=== PATIENT | male | born 1955 | race Caucasian/White ===

== ENCOUNTER 2024-10-19 07:31 | Outpatient (CLI) | payer MEDICARE, SELFPAY ==
--- NOTE | ~2024-10-19 | PE_ITS ---
EXAMINATION: PET_PETPSMAST_PT DATE: 10/19/2024 10:19 INDICATION: Prostate cancer TECHNIQUE: 5.176 mCi of Illucix Ga-[id number]) was administered i.v. Low dose computed tangela graphy (CT) images were acquired from the base of the brain to the base of the brain to the proximal thighs for attenuation correction and anatomic localization. Positron emission tomography (PET) image s were acquired in the same distribution beginning 70 minutes after injection. Images including fused PET/CT images were reconstructed in axial, coronal, and sagittal planes. Automated exposure control technique was employed. The dose-length product was 1014.59mGy-cm. COMPARISON: None FINDINGS: Head/neck: Typical pattern of symmetric physiologic increased activity in the lacrimal, parotid and submandibula r glands as well as along the mucosa of the nasal and oral cavities, pharynx and hypopharynx. No path ologically enlarged cervical lymphadenopathy or suspicious foci of increased uptake in the visualized head or neck. Chest: Mild dependent atelectasis in both lungs. No suspicious pulmonary nodules, pneumonia, pulmonary edema or pleural effusion. Heart size is normal. No pericardial effusion. Thoracic aorta is normal in [place]. No pathologically enlarged or PSMA avid thoracic lymphadenopathy. Abdomen/pelvis/proximal thighs: Physiologic renal accumulation and excretion of activity in the kidneys, bladder and along portions o f ureters. Couple exophytic low-attenuation left renal cysts the larger measuring 1.5 cm. Prostatomeg isidro measuring 4.7 x 3.8 cm. There is a small focus of increased uptake at the posterolateral right si de of the prostate with maximal SUV of 16.3 consistent with primary prostate cancer. Normal degree an d slightly heterogenous pattern of increased uptake throughout the liver and spleen without radiologi c correlate or dominant PSMA avid lesion. The gallbladder, pancreas and bilateral adrenal glands are normal. Moderate uptake scattered throughout the bowels with typical duodenal and proximal jejunal pr edominance and without radiologic correlate, also likely physiologic. Normal appendix. No other abnor mal foci of increased uptake or pathologically enlarged lymphadenopathy in the abdomen, pelvis or pro ximal thighs. Musculoskeletal: There are bridging or nearly bridging osteophytes at multiple levels throughout the cervical, thoraci c and lumbar spine consistent with diffuse idiopathic skeletal hyperostosis (DISH). No suspicious ly tic, blastic or abnormally PSMA avid bone lesions. IMPRESSION: 1. Single focus of prominent increased uptake at the posterolateral right side of the enlarged prosta te consistent with reported primary prostate cancer. No evident metastatic disease. Reviewed, dictated and finalized at location A. IMPRESSION: 1. Single focus of prominent increased uptake at the posterolateral right side of the enlarged prostate consistent with reported primary prostate cancer. No e vident metastatic disease.
--- OUTSIDE RECORDS SUMMARY | 2024-10-19 07:34 | XMS_ITS | Clinical Summary ---
Author Organization [facility] [address] Address [address] [place] [address] Phone Care Team Providers Care Parts Data Writer Name Role Phone Kevin, Jude Chente MARSHALL Primary Care Provider [phone]- [phone] Allergies No known active allergies Medications triamcinolone (KENALOG) 0.1 % ointment Apply topically 2 (two) times a day as needed for rash 4 Active amLODIPine (NORVASC) 5 mg tabletIndicatio ns:Hypertension , essential TAKE 1 TABLET (5 MG TOTAL) BY MOUTH DAILY. 90 tablet 1 5 07/12/19 26 Active Active Problems Problem Noted Date Diagnosed Date Hyperglycemia 12/10/2023 Assessment & Plan (12/10/2023 8:54 AM CDT): Discussed ranges today goal hbaic is under 5.7 percent he is at 5.2 percent He has been working out and has dropped about 10 pounds Rising PSA level 12/10/2023 Assessment & Plan (12/10/2023 8:54 AM CDT): Level today us under 4 He is asymtpomatic We had notcied a trend in elevation hence it was repeated sooner Hypertension, essential 12/10/2023 Assessment & Plan (12/10/2023 8:55 AM CDT): Goal bp is 130/80 or under Continue norvasc 5 mg po qday Encounter for Medicare annual wellness exam 04/15 Overview (04/26/2019): Added automatically from request for surgery [id number] Assessment & Plan (06/14/2024 3:26 PM CDT): IMMUNIZATIONS WERE REVIEWED EYE EXAM AND DENTAL ENCOURAGED FALL PREVENTION AND PRECUATIONS REVIEWED ESSENTIAL HTN GOAL BP IS 130/80 OR UNDER SLOWLY RISING PSA REFER TO UROLOGY NO CONGTIVE DECLINE Right carpal tunnel syndrome 06/25/2017 Routine physical examination 03/31/2017 Acute prostatitis 12/02/2016 Immunizations Immunization Administration Dates Next Due Influenza, Unspecified 12/10/2023(Deferr ed: Patient Refused),01/04/2023(Deferred: Patient Refused) Tdap 04/18/2018 Surgical History Surgery Date Site/Laterality Comments COLONOSCOPY 03/15/2017 - 04/14/2017 COLONOSCOPY 07/02/2022 Medical History Medical History Date Comments Hypertension Social History Tobacco Use Types Packs/Day Years Used Date Smoking Tobacco: Never Smokeless Tobacco: Never Tobacco Cessation:Counseling Given: Not Answered PHQ-2 Answer Date Recorded PHQ-2 Total Score (If total score is 3 or more points, staff should administer the PHQ-9) 0 06/14/2024 Personal Safety Answer Date Recorded Have you ever been in or are you currently in a harmful physical or emotional relationship or is someone making you feel afraid or unsafe? 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 Gender Identity Not on file Sexual Orientation Not on file Obstetrics History Last Filed Vital Signs Vital Sign Reading Time Taken Comments Blood Pressure 152/80 06/14/2024 8:00 AM CDT Pulse 78 06/14/2024 8:00 AM CDT Temperature 36.7 C (98.1 F) 06/14/2024 8:00 AM CDT Respiratory Rate 16 06/14/2024 8:00 AM CDT Oxygen Saturation 95% 06/14/2024 8:00 AM CDT Inhaled Oxygen Concentration - - Weight 87.3 kg (192 lb 6.4 oz) 06/14/2024 8:00 A M CDT Height 180.3 cm (5' 11) 06/14/2024 8:00 AM CDT Body Mass Index 26.83 06/14/2024 8:00 AM CDT Plan of Treatment Health Maintenance Due Date Last Done Comments Hepatitis C Screening 1955 Hepatitis B Screening 08/07/1975 Pneumococcal vaccine 65+ (1 of 1 - PCV) 08/07/2007 Zoster Vaccine (1 of 2) 08/07/2007 Influenza Vaccine (#1) 2024 Depression Screening 06/14/2025 06/14/2024, 06/07/2023, 06/05/2022 Fall Risk Assessment 06/14/2025 06/14/2024, 06/07/19 Well Visit 65+ 06/14/2025 06/14/2024, 05/14, 06/05/2022, Additional history exists Prostate Cancer Screening-PSA 05/29/2026, 11/26/2023, 06/01/2023, Additional history exists DTaP/Tdap/Td Vaccine (2 - Td or Tdap) 04/18/2028 04/18/2018 Colon Cancer Screening-Colonoscopy 07/02/2032 07/02/2022 Colon Cancer Screening-CT Colonography Discontinued 07/02/2022 Colon Cancer Screening-DNA Stool Discontinued 07/03/19 Colon Cancer Screening-FIT Discontinued 07/02/2022 Colon Cancer Screening-Sigmoidoscopy Discontinued 07/02/2022 Procedures Procedure Name Priority Date/Time Associated Diagnosis Comments PSA DIAGNOSTIC Routine 05/29/2024 7:58 AM CDT Rising PSA level COLONOSCOPY 07/02/2022 9:25 AM CDT from Last 3 Months or Most Recently Relevant to Health Maintenance Results * PSA diagnostic (05/29/2024 7:58 AM CDT) PSA-Total 3.24 <=5.40 ng/mL Comment: Interpretive Data AGE SEX REFERENCE INTERVAL 0 minutes-150 years Female None 0 minutes-49 years Male None 50-59 years Male 0-3.90 60-69 years Male 0-5.40 70-79 years Male 0-6.20 80-150 years Male 0-6.20 The Spencer PSA Total assay procedure was used. Results from different manufacturers or methods may not be comparable. Serial testing should be performed using the same method. Current interpretive data last revised 21. Testing performed by: [facility], [address] [place] [address]., [id number] Blood 05/29/2024 7:58 AM CDT 05/29/2024 2:21 PM CDT us Jude Brown MD LAB BLOOD ORDERABLES Final Result [place] [id number] [facility] Department of Laboratories [place] [id number] * COLONOSCOPY (07/02/2022 9:25 AM CDT) Anatomical Region Laterality Modality Other Narrative Procedure Note Santos Mejia MD - 07/02/2022 9:25 AM CDT [facility] Patient Name: Rogelio Stone Procedure Date: 07/02/2022 9:25 AM Date of : 1955 Admit Type: Outpatient Age: 66 Gender: Male Attending MD: Santos Mejia M.D. Room: [facility] ENDOSCOPY ROOM 1 Note Status: Finalized Patient Profile: Refer to note in patient chart for documentation of history and physical. Procedure: Colonoscopy Indications: Screening for colorectal malignant neoplasm, Last colonoscopy: March 2017 Referring MD: Jude Brown M.D. Providers: Santos Mejia M.D. Impression: - Hemorrhoids found on perianal exam. - One 5 mm polyp in the ascending colon, removedwith a cold snare. Resected and retrieved. - Diverticulosis in the sigmoid colon and in the ascending colon. - The examination was otherwise normal. Recommendation: - Discharge patient to home. - Resume previous diet. - Continue present medications. - Await pathology results. - Repeat colonoscopy in 10 years [facility]. - Return to primary care physician as previously scheduled. Medicines: Propofol per Anesthesia Complications: No immediate complications. Estimated Blood Loss: Estimated blood loss: none. Procedure: Pre-Anesthesia Assessment: - This assessment was completed [Time ofAssessment] prior to the administration of sedation. The benefits, risks and alternatives of theprocedure and sedation were discussed and informed consentwas obtained. All questions were answered. Please referto the signed informed consent document in the medical record. The bowel preparation used was Miralax via split dose instruction. The bowel preparation usedwas bisacodyl tablets via split dose instruction. The scope was passed under direct vision. TheColonoscope [id number] was introduced through the anus and advanced to the the cecum, identified by appendiceal orifice and ileocecal valve. The colonoscopy was performed without difficulty. The patient tolerated the procedure well. The qualityof the bowel preparation was excellent. The ileocecal valve, appendiceal orifice, and rectum were photographed. Findings: Hemorrhoids were found on perianal exam. A 5 mm polyp was found in the ascending colon. The polyp was sessile. The polyp was removed with a cold snare. Resection and retrieval were complete. Verification of patient identification for the specimen was done by the physician and nurse using the patient's name and birthdate. Estimated blood loss was minimal. Multiple small-mouthed diverticula were found in the sigmoid colonand ascending colon. The exam was otherwise without abnormality. Electronically signed by Santos Mejia M.D. Santos Mejia M.D. 07/02/2022 10:36:43 AM Number of Addenda: 0 Note Initiated On: 07/02/2022 9:25 AM Procedure Code(s): --- Professional --- 97328, Colonoscopy, flexible; with removal of tumor(s), polyp(s), or other lesion(s) by snare technique --- Technical --- 26771, Colonoscopy, flexible; with removal of tumor(s), polyp(s), or other lesion(s) by snare technique Diagnosis Code(s): --- Professional --- K57.30, Diverticulosis of large intestine without perforation orabscess without bleeding D12.2, Benign neoplasm of ascending colon K64.9, Unspecified hemorrhoids Z12.11, Encounter for screening for malignant neoplasm of colon --- Technical --- K57.30, Diverticulosis of large intestine without perforation orabscess without bleeding D12.2, Benign neoplasm of ascending colon K64.9, Unspecified hemorrhoids Z12.11, Encounter for screening for malignant neoplasm of colon CPT copyright 2020 [employer]. All rights reserved. The codes documented in this report are preliminary and upon medical billing coder reviewmay be revised to meet current compliance requirements. Recognized by the [employer] for promoting quality in endoscopy Santos Mejia MD ENDOSCOPY PROCEDURES Final Re sult from Last 3 Months or Most Recently Relevant to Health Maintenance [facility] [id number] MEDICARE MEDICARE [facility] [id number] Advance Directives For more information, please contact: [phone] * Full Code (Latest Code Status on File) Date Activated Date Inactivated Comments 07/02/2022 9:07 AM 07/02/2022 3:41 PM * Full Code Date Activated Date Inactivated Comments 07/02/2022 9:07 AM 07/02/2022 9:07 AM Care Teams Parts Data Writer Relationship Specialty Start Date End Date Jude Brown MD [address] [place] [address] PCP - General 02/23/14
--- OUTSIDE RECORDS SUMMARY | 2024-10-19 07:34 | XMS_ITS | Clinical Summary ---
Author Organization [facility] Address [address] [place] [address] Phone Care Team Providers Care Hook Tender Name Role Phone Jude Brown MD Primary Care Provider [phone]- [phone] Allergies No known active allergies Medications No known medications Family History Medical History Relation Name Comments No Known Problems Father Stroke Mother Relation Name Status Comments Father Mother Alive Social History Tobacco Use Types Packs/Day Years Used Date Smoking Tobacco: Never Alcohol Use Standard Drinks/Week Comments Yes 0 (1 standard drink = 0.6 oz pur e alcohol) occassional Sex and Gender Information Value Date Recorded Sex Assigned at Not on file Legal Sex Male 10:35 PM CDT Gender Identity Not on file Sexual Orientation Not on file Occupation Industry Job Start Date Job End Date Retired Not on file Not on file Not on file Last Filed Vital Signs Vital Sign Reading Time Taken Comments Blood Pressure 122/84 06/12/2015 8:36 AM CDT Pulse 64 06/12/2015 8:36 AM CDT Temperature - - Respiratory Rate 20 06/12/2015 8:36 AM CDT Oxygen Saturation - - Inhaled Oxygen Concentration - - Weight 88 kg (194 lb) 06/12/2015 8:36 AM CDT Height 182.9 cm (6') 06/12/2015 8:36 AM CDT Body Mass Index 26.31 06/12/2015 8:36 AM CDT Plan of Treatment Health Maintenance Due Date Last Done Comments Hepatitis C Virus (HCV) Screening 1955 TdaP Immunization 1955 Cologuard 2002 Colonoscopy 2002 Colorectal Cancer Screening 2002 Immunochemical Fecal Occult Blood 2002 Pneumococcal Immunization (5 0+ years) (1 of 1 - PCV) 08/07/2007 Zoster Immunization (1 of 2) 08/07/2007 SARS-COV-2 Immunization (1 - season) 2023 Influenza Immunization (#1) 2024 Respiratory Syncytial Virus (RSV) Immunization (Adult) (1 - 1-dose 75+ series) 2032 Hepatitis B Immunization Aged Out No longer eligible based on patient's age to complete this topic Human Papillomavirus (HPV) Immunization Aged Out No longer eligible b ased on patient's age to complete this topic Meningococcal Immunization (ACWY) Aged Out No longer eligible based on patient's age to complete this topic Rotavirus Immunization Aged Out No lo nger eligible based on patient's age to complete this topic Insurance [facility] OAP Care Teams Hook Tender Relationship Specialty Start Date End Date Jude Brown MD [address] [place] [address] PCP - General Internal Medicine 06/03/15
--- OUTSIDE RECORDS SUMMARY | 2024-10-19 07:34 | XMS_ITS | Encounter Summary ---
Author Organization [facility] Address [address] [place] [address] Phone Care Team Providers Care Lawn And Garden Technician Name Role Phone Jude Brown MD Primary Care Provider [phone]- [phone] Encounter Details Date Type Department Care Team (Late st Contact Info) Description 11/06/2016 Orders Only [facility] [address] [place] [address] Jude Brown MD [address] [address] Essential hypertension, malignant (Primary Dx); Routine lab draw; Special screening for malignant neoplasm of prostate Social History Tobacco Use Types Packs/Day Years Used Date Smoking Tobacco: Unknown Sex and Gender Information Value Date Recorded Sex Assigned at Not on file Legal Sex Male 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 Gender Identity Not on file Sexual Orientation Not on file documented as of this encounter Plan of Treatment Not on file documented as of this encounter Procedures Procedure Name Priority Date/Time Associated Diagnosis Comments CBC WITH AUTO DIFFERENTIAL Routine 03/22/2017 7:42 AM COMPUTER APPLICATION DEVELOPER Essential hypertension, malignant PSA SCREEN Routine 03/22/2017 7:41 AM COMPUTER APPLICATION DEVELOPER Special screening for malignant neoplasm of prostate VITAMIN D 25 HYDROXY Routine 03/22/2017 7:41 AM COMPUTER APPLICATION DEVELOPER Routine lab draw LIPID PANEL Routine 03/22/2017 7:41 AM [facility] Routine lab draw COMPREHENSIVE METABOLIC PANEL Routine 03/22/2017 7:41 AM [facility] Essential hypertension, malignant documented in this encounter Results * (ABNORMAL) CBC with auto differential (03/22/2017 7:42 AM [facility]) WBC 3.4(L) 3.8 - 10.8 Thousand/ uL [facility] [place] RBC, POC 4.03(L) 4.20 - 5.80 Million/u L [facility] [place] Hgb 12.8(L) 13.2 - 17.1 g/dL [facility] [place] Hct 38.2(L) 38.5 - 50.0 % [facility] [place] MCV 94.8 80.0 - 100.0 fL [facility] [place] MCH 31.8 27.0 - 33.0 pg [facility] [place] MCHC 33.5 32.0 - 36.0 g/dL [facility] [place] Rdw 12.4 11.0 - 15.0 % [facility] [place] Platelets 180 140 - 400 Thousand/ uL [facility] [place] MPV 10.2 7.5 - 12.5 fL [facility] [place] Neutrophils, abs 1,635 1,500 - 7,800 cells/uL [facility] [place] Neutrophil bands, abs CANCELED 0 - 750 cells/uL [facility] [place] Comment:Result canceled by t he ancillary Metamyelocytes, abs CANCELED 0 cells/uL [facility] [place] Comment:Result canceled by t he ancillary Absolute Myelocytes CANCELED 0 cells/uL [facility] [place] Comment:Result canceled by t he ancillary Promyelocytes, abs CANCELED 0 cells/uL [facility] [place] Comment:Result canceled by t he ancillary Lymphocytes, abs 1,268 850 - 3,900 cells/uL [facility] [place] Monocyte abs 354 200 - 950 cells/uL [facility] [place] Eosinophils, abs 122 15 - 500 cells/uL [facility] [place] Basophils, abs 20 0 - 200 cells/uL [facility] [place] Blast, cell CANCELED 0 cells/uL [facility] [place] Comment:Result canceled by t he ancillary NRBC abs CANCELED 0 cells/uL [facility] [place] Comment:Result canceled by t he ancillary Neutrophils 48.1 % [facility] [place] Neutrophilic bands CANCELED % [facility] [place] Comment:Result canceled by t he ancillary Metamyelocyte pct CANCELED % [facility] [place] Comment:Result canceled by t he ancillary Myelocyte pct CANCELED % [facility] [place] Comment:Result canceled by t he ancillary Promyelocyte pct CANCELED % [facility] [place] Comment:Result canceled by t he ancillary Lymphocyte pct 37.3 % [facility] [place] Reactive lymph CANCELED 0 - 10 % [facility] [place] Comment:Result canceled by t he ancillary Monocytes 10.4 % [facility] [place] Eosinophils 3.6 % [facility] [place] Basophils 0.6 % [facility] [place] Blast pct CANCELED % [facility] [place] Comment:Result canceled by t he ancillary NRBC CANCELED 0 /100 WBC [facility] [place] Comment:Result canceled by t he ancillary Comment CANCELED [facility] [place] Comment:Result canceled by t he ancillary Blood specimen (specimen) 03/22/2017 7:42 AM COMPUTER APPLICATION DEVELOPER 03/22/2017 7:43 AM COMPUTER APPLICATION DEVELOPER Narrative [facility] - 03/23/2017 1:04 AM COMPUTER APPLICATION DEVELOPER FASTING:YES FASTING: YES Resulting Agency Comment Performing Organization Information: Site ID: [place] Name: [email or web address] Address: [address] [place] [address] [place] [address] Director: Micha Herndon D.O., MPH us Jude Brown MD LAB BLOOD ORDERABLES Final Result REN[place] [facility] [place] * (ABNORMAL) Vitamin D 25 hydroxy (03/22/2017 7:41 AM COMPUTER APPLICATION DEVELOPER) Vitamin D 25-OH 28(L) 30 - 100 ng/mL [facility] [place] Comment: Vitamin D Status 25-OH Vitamin D: Deficiency: <20 ng/mL Insufficiency: 20 - 29 ng/mL Optimal: > or = 30 ng/mL For 25-OH Vitamin D testing on patients on D2-supplementation and patients for whom quantitation of D2 and D3 fractions is required, the QuestAssureD(TM) 25-OH VIT D, (D2,D3), LC/MS/MS is recommended: order code 66032 (patients >2yrs). For more information on this test, go to: http://education.Synoste Oy/faq/CKM728 (This link is being provided for informational/educational purposes only.) Blood specimen (specimen) 03/22/2017 7:41 AM COMPUTER APPLICATION DEVELOPER 03/22/2017 7:41 AM COMPUTER APPLICATION DEVELOPER Narrative [facility] - 03/23/2017 3:48 AM COMPUTER APPLICATION DEVELOPER FASTING:YES FASTING: YES Resulting Agency Comment Performing Organization Information: Site ID: [place] Name: [email or web address] Address: [address] [facility] [place] [address] Director: Micha Herndon D.O. MPH Jude Brown MD LAB BLOOD ORDERABLES Final Result Performing Organization Address [facility] de Phone Number RENEA Powered by Peak [facility] [place] * PSA screen (03/22/2017 7:41 AM COMPUTER APPLICATION DEVELOPER) PSA 1.0 < OR = 4.0 ng/mL Powered by Peak [facility] Comment: The total PSA value from this assay system is standardized against the WHO standard. The test result will be approximately 20% lower when compared to the equimolar-standardized total PSA (Alissa Yaima). Comparison of serial PSA results should be interpreted with this fact in mind. This test was performed using the Siemens chemiluminescent method. Values obtained from different assay methods cannot be used interchangeably. PSA levels, regardless of value, should not be interpreted as absolute evidence of the presence or absence of disease. Blood specimen (specimen) 03/22/2017 7:41 AM COMPUTER APPLICATION DEVELOPER 03/22/2017 7:41 AM COMPUTER APPLICATION DEVELOPER Narrative [facility] - 03/23/2017 3:48 AM COMPUTER APPLICATION DEVELOPER FASTING:YES FASTING: YES Resulting Agency Comment Performing Organization Information: Site ID: [place] Name: [email or web address] Address: [address] [place] [address] Director: Micha Herndon D.O. MPH Jude Bronw MD LAB BLOOD ORDERABLES Final Result Performing Organization Address [facility] de Phone Number YASHIRA Carballo * Lipid panel (03/22/2017 7:41 AM COMPUTER APPLICATION DEVELOPER) Cholesterol 181 <200 mg/dL [facility] [place] HDL 89 >40 mg/dL [facility] [place] Triglycerides 44 <150 mg/dL [facility] [place] LDL 79 mg/dL (calc) [facility] Comment: Reference range: <100 Desirable range <100 mg/dL for patients with CHD or diabetes and <70 mg/dL for diabetic patients with known heart disease. LDL-C is now calculated using the Bridget calculation, which is a validated novel method providing better accuracy than the Friedewald equation in the estimation of LDL-C. Filippo SS et al. CL. 2013;310(90): 6634-9080 (http://education.Playdom/faq/DGJ329) Chol/HDL ratio 2.0 <5.0 (calc) [facility] [place] Non-HDL, (LDL+VLDL) 92 <130 mg/dL (calc) [facility] Comment: For patients with diabetes plus 1 major ASCVD risk factor, treating to a non-HDL-C goal of <100 mg/dL (LDL-C of <70 mg/dL) is considered a therapeutic option. Blood specimen (specimen) 03/22/2017 7:41 AM COMPUTER APPLICATION DEVELOPER 03/22/2017 7:41 AM COMPUTER APPLICATION DEVELOPER Narrative [facility] - 03/23/2017 3:48 AM COMPUTER APPLICATION DEVELOPER FASTING:YES FASTING: YES Resulting Agency Comment Performing Organization Information: Site ID: [place] Name: [facility] [place] Address: [address] [address] Director: Micha Herndon D.O., MPH us Jude Brown MD LAB BLOOD ORDERABLES Final Result YASHIRA Carballo * (ABNORMAL) Comprehensive metabolic panel (03/22/2017 7:41 AM COMPUTER APPLICATION DEVELOPER) Glucose 106(H) 65 - 99 mg/dL [facility] Comment: Fasting reference interval For someone without known diabetes, a glucose value between 100 and 125 mg/dL is consistent with prediabetes and should be confirmed with a follow-up test. BUN 20 7 - 25 mg/dL [facility] [place] Creatinine 0.89 0.70 - 1.33 mg/dL [facility] [place] Comment: For patients >49 years of age, the reference limit for Creatinine is approximately 13% higher for people identified as -Scottish. eGFR NON-AFR. LUXEMBOURGER 94 > OR = 60 mL/min/1 .73m2 [facility] [place] EGFR 108 > OR = 60 mL/min/1 .73m2 [facility] [place] BUN/creat ratio NOT APPLICABLE 6 - 22 (calc) [facility] [place] Sodium 142 135 - 146 mmol/L [facility] [place] Potassium, pl 4.1 3.5 - 5.3 mmol/L [facility] [place] Chloride 106 98 - 110 mmol/L [facility] [place] CO2 30 20 - 31 mmol/L [facility] [place] Calcium 9.4 8.6 - 10.3 mg/dL [facility] [place] Protein, sr 6.3 6.1 - 8.1 g/dL [facility] [place] Albumin 4.4 3.6 - 5.1 g/dL [facility] [place] GLOBULIN 1.9 1.9 - 3.7 g/dL (calc) [facility] [place] Alb/glob ratio 2.3 1.0 - 2.5 (calc) [facility] [place] Bilirubin, total 0.9 0.2 - 1.2 mg/dL [facility] [place] Alk phos 72 40 - 115 U/L [facility] [place] AST 18 10 - 35 U/L [facility] [place] ALT (SGPT) 15 9 - 46 U/L [facility] [place] Blood specimen (specimen) 03/22/2017 7:41 AM COMPUTER APPLICATION DEVELOPER 03/22/2017 7:41 AM COMPUTER APPLICATION DEVELOPER Narrative [facility] - 03/23/2017 3:48 AM COMPUTER APPLICATION DEVELOPER FASTING:YES FASTING: YES Resulting Agency Comment Performing Organization Information: Site ID: [place] Name: [email or web address] Address: [address] [address] [address] Director: Micha Herndon D.O., MPH us Jude Brown MD LAB BLOOD ORDERABLES Final Result [facility] [place] documented in this encounter Visit Diagnoses Diagnosis Essential hypertension, malignant- Primary Routine lab draw Special screening for malignant neoplasm of prostate documented in this encounter Care Teams Lawn And Garden Technician Relationship Specialty Start Date End Date Jude Brown MD [address] [place] [address] PCP - General 02/23/14 documented as of this encounter
== END 2024-10-19 07:32 | disposition home or self-care (01) ==
PROVIDERS: Visit Provider Urology
DX: C61 Malignant neoplasm of prostate (principal)
CPT/HCPCS: 78815; A9596